=== PATIENT | female | born 1970 | race American Indian/Alaskan Native ===

== ENCOUNTER 2018-06-12 06:09 | Emergency (ER) | payer OTHER, SELFPAY ==
[2018-06-12 06:22] VITALS: BMI 36.6
[2018-06-12 06:23] VITALS: BP 159/119; PULSE 107; RESP 20; TEMP 37.1; O2SAT 99
--- NOTE | 2018-06-12 07:03 | ED_ITS ---
HPI - Extremity Problem General Chief complaint: Extremity Problem,Nontraumatic Stated complaint: numbness all over heart feels tight in chest area Time Seen by Provider: 06/12/18 07:03 Source: patient Mode of arrival: ambulatory Limitations: no limitations History of Present Illness HPI Narrative: 47-year-old female here for evaluation of multiple complaints. She states that last year she was here in the emergency department with was ultimately diagnosed as paresthesias. She states she was told to find a primary doctor and then to go see a neurologist for continued workup. She states that she has not done this. She does not have a primary care doctor. She states that the numbness that she has been getting all over her body has been worsening. She states she still can feel things he just it is a decreased sensation. She also feels cold. She is also here stating for the past couple days she has had left-sided chest pain that gets better when she moves her arm around. No problems breathing. Also describing back pain. Patient also admits to having very bad teeth which causes her to not eat much. She states she has no taste which also causes her not to eat much. She has not seen a dentist recently. Patient also admits to drinking daily. She states that she also abuses opioids. She has been drinking ensures but this is really the only nutrition. She states she has had thyroid issues in the past. She is not currently on any thyroid medications. Related Data Allergies Allergy/AdvReac Type Severity Reaction Status Date / Time ibuprofen [IBUPROFEN] Allergy Intermediate rash Unverified 06/12/18 07:30 Review of Systems Constitutional Reports chills, Reports fatigue, Denies fever(s), Reports malaise and Denies weakness Eyes Denies blurry vision and Denies diplopia ENT Ears, Nose, Mouth, and Throat: Denies vertigo, Reports dizziness, Reports disequilibrium, Denies sinus pressure and Denies sore throat Cardiovascular Reports chest pain, Denies syncope, Denies rapid heart rate, Denies edema, Reports lightheadedness, Denies palpitations, Denies dyspnea and Denies dyspnea on exertion Respiratory Denies cough, Denies dyspnea and Denies dyspnea on exertion Gastrointestinal Gastrointestinal: Denies abdominal pain, Denies change in bowel habits, Denies nausea and Denies vomiting Genitourinary Denies dysuria and Denies vaginal discharge Musculoskeletal Reports myalgias, Denies deformity, Denies arthralgias, Reports numbness and Reports tingling Integumentary/Breasts Denies lesions and Denies photosensitivity Neurologic Denies confusion, Denies vertigo, Reports dizziness, Denies syncope, Reports numbness, Reports tingling, Reports paresthesias, Reports disequilibrium and Denies weakness Psychiatric Denies anxiety, Denies confusion and Reports depression Endocrine Reports fatigue and Denies palpitations Hematologic/Lymphatic Comments: Not on anticoagulation Allergic/Immunologic Denies urticaria PFSH Medical History Graves disease (Acute) Surgical History No pertinent past surgical history (Acute) Social History Smoking Status: Current every day smoker Exam Initial Vital Signs Initial Vital Signs: Vital Signs Temperature 98.7 F 06/12/18 06:23 Pulse Rate 107 H 06/12/18 06:23 Respiratory Rate 20 06/12/18 06:23 Blood Pressure 159/119 H 06/12/18 06:23 Pulse Oximetry 99 06/12/18 06:23 Const General: cooperative, comfortable, well developed and No acute distress Orientation: alert, awake and oriented x3 HENMT Head: normal to inspection and normocephalic Teeth and gingiva: poor dentition Eyes Pupils: PERRL EOM: EOM intact bilaterally Chest Chest: normal inspection of the chest Resp Effort & Inspection: normal respiratory effort Auscultation: clear to auscultation bilaterally Cardio Rate: regular rate Rhythm: regular rhythm Heart Sounds: no murmurs Pulses: radial pulses present GI Inspection: non-distended Palpation: soft, No firm and No tender Back/Spine/Pelvis Cervical Spine: No cervical spinal tenderness Thoracic/Lumbar Spine: No thoracic spinal tenderness and No lumbar spinal tenderness Skin Lesions: no lesions Rashes: no rashes Neuro General: alert, awake and oriented x3 Cranial Nerves: CN's II-XI intact bilaterally Cognition: normal cognition Speech: speech normal Motor: muscle tone normal throughout Sensory Exam: other (Patient reports decreased sensation to light touch bilateral and all areas where i touched her upper lower extremities and on the head.) Extrem General: normal to inspection, capillary refill normal and No edema Psych Appearance: grossly normal and well kempt Course Orders Ordered: ED Orders 06/12/18 06:28 EKG-12 Lead Stat 06/12/18 06:50 Complete Blood Count AUTO DIFF Stat Comprehensive Metabolic Panel Stat Ethanol (ETOH) Stat Lipase Stat Magnesium Stat Phosphorous Stat Thyroid Stimulating Hormone Stat Troponin I Stat 06/12/18 08:50 Urine Culture Stat Urine Microscopic Stat Multivitamins (Tab-A-Tony) 1 tab PO DAILY SOL Last Admin: 06/12/18 07:37 Dose: 1 tab Discontinued Medications Sodium Chloride (Normal Saline 0.9%) 1,000 mls @ 1,000 mls/hr IV BOLUS ONE Stop: 06/12/18 08:20 Last Admin: 06/12/18 07:36 Dose: 1,000 mls/hr Potassium Chloride (Potassium Chloride) 40 meq PO NOW ONE Stop: 06/12/18 07:47 Last Admin: 06/12/18 09:05 Dose: 40 meq Vital Signs - 8 hr 06/12/18 06:23 06/12/18 09:01 Temperature 98.7 F Pulse Rate 107 H 99 H Respiratory Rate 20 Blood Pressure [Right Arm] 159/119 H 119/70 Pulse Oximetry 99 100 MDM - Extremity (Nontraumatic) Lab Data Result diagrams: 06/12/18 06:50 06/12/18 06:50 Lab Results 06/12/18 06/12/18 06/12/18 Range/Units 06:50 06:50 06:50 WBC 11.5 H (4.5-11.0) X10^3/uL RBC 3.08 L (4.0-5.2) X10^6/uL Hgb 12.6 (12.0-16.0) g/dL Hct 35.1 L (36-46) % MCV 114.2 H (80-100) fL MCH 40.9 H (26-34) PG MCHC 35.8 (30-36) % RDW 15.7 H (11.6-14.8) % Plt Count 365 (150-400) X10^3/uL Neut % (Auto) 73.4 (50-75) % Lymph % (Auto) 19.6 L (25-40) % [place] % (Auto) 5.1 (3-14) % Eos % (Auto) 1.3 L (2-4) % Baso % (Auto) 0.6 (0-2) % Neut # (Auto) 8400 H (9415-9981) /uL Lymph # (Auto) 2300 (6034-1417) /uL [place] # (Auto) 600 (0-900) /uL Eos # (Auto) 100 (0-450) /uL Baso # (Auto) 100 (0-100) /uL RBC Morphology See below Polychromasia 3+ H Anisocytosis 1+ H Sodium 133 L (137-145) mmol/L Potassium 2.8 L (3.4-5.1) mmol/L Chloride 90 L (98-107) mmol/L Carbon Dioxide 33 H (22-32) mmol/L BUN 8 (7-17) mg/dL Creatinine 0.30 L (0.52-1.04) mg/dL Estimated GFR > 60.0 (>60) mL/min BUN/Creatinine Ratio 26.7 H (6-22) Glucose 119 H (70-100) mg/dL Calcium 8.5 (8.4-10.2) mg/dL Phosphorus 2.9 (2.5-4.5) mg/dL Magnesium 1.8 (1.6-2.3) mg/dL Total Bilirubin 1.0 (0.2-1.3) mg/dL AST 82 H (14-36) IU/L ALT 29 (9-52) IU/L Alkaline Phosphatase 179 H (38-126) U/L Troponin I < 0.012 (0.01-0.034) ng/mL Total Protein 7.3 (6.3-8.2) g/dL Albumin 3.5 (3.5-5.0) g/dL Globulin 3.8 (1.7-4.1) g/dL Albumin/Globulin Ratio 0.9 L (1.0-2.8) Lipase 187 (23-300) U/L TSH 6.03 H (0.47-4.68) uIU/mL Urine RBC (0-5/HPF) Urine WBC (0-5/HPF) Urine Bacteria (None) Ur Culture Indicated? Ethyl Alcohol < 10 mg/dL 06/12/18 Range/Units 08:50 WBC (4.5-11.0) X10^3/uL RBC (4.0-5.2) X10^6/uL Hgb (12.0-16.0) g/dL Hct (36-46) % MCV (80-100) fL MCH (26-34) PG MCHC (30-36) % RDW (11.6-14.8) % Plt Count (150-400) X10^3/uL Neut % (Auto) (50-75) % Lymph % (Auto) (25-40) % [place] % (Auto) (3-14) % Eos % (Auto) (2-4) % Baso % (Auto) (0-2) % Neut # (Auto) (4994-1550) /uL Lymph # (Auto) (4301-7084) /uL [place] # (Auto) (0-900) /uL Eos # (Auto) (0-450) /uL Baso # (Auto) (0-100) /uL RBC Morphology Polychromasia Anisocytosis Sodium (137-145) mmol/L Potassium (3.4-5.1) mmol/L Chloride (98-107) mmol/L Carbon Dioxide (22-32) mmol/L BUN (7-17) mg/dL Creatinine (0.52-1.04) mg/dL Estimated GFR (>60) mL/min BUN/Creatinine Ratio (6-22) Glucose (70-100) mg/dL Calcium (8.4-10.2) mg/dL Phosphorus (2.5-4.5) mg/dL Magnesium (1.6-2.3) mg/dL Total Bilirubin (0.2-1.3) mg/dL AST (14-36) IU/L ALT (9-52) IU/L Alkaline Phosphatase (38-126) U/L Troponin I (0.01-0.034) ng/mL Total Protein (6.3-8.2) g/dL Albumin (3.5-5.0) g/dL Globulin (1.7-4.1) g/dL Albumin/Globulin Ratio (1.0-2.8) Lipase (23-300) U/L TSH (0.47-4.68) uIU/mL Urine RBC None seen (0-5/HPF) Urine WBC 5-10/hpf H (0-5/HPF) Urine Bacteria None seen (None) Ur Culture Indicated? Specimen cultured Ethyl Alcohol mg/dL Urine Dip Bedside Urine Glucose Negative Bedside Urine Bilirubin - Negative Bedside Urine Ketone - Negative Urine Specific [place] 1.010 Bedside Urine Occult Blood - Negative Bedside Urine pH 7.5 Bedside Urine Protein - Negative Bedside Urine Urobilinogen +/- 1mg Bedside Urine Nitrite - Negative Bedside Urine Leukocytes +++ 500 Esterase ECG Data Attestation EKG: I personally reviewed and interpreted this ECG as follows: Prior ECG tracings: not available for review Interpretation: Sinus tachycardia Ventricular rate of 109 Normal axis Normal QRS next normal QTC No ST T wave changes MDM Narrative Medical decision making narrative: Patient has nonspecific symptoms. Her potassium was slightly low and was replaced here in the emergency department. She was also given a multi-vitamin. She has a nonfocal neurologic exam. Low suspicion for TIA or CVA. Will hold on head CT. Patient does admit to drinking an excessive amount of alcohol. Considered alcohol withdrawal however she has no other signs of this. Considered encephalopathy and DTs however her symptoms are not consistent with that currently. She has no ocular motor abnormalities and no cerebellar dysfunction. No truncal ataxia. Was also some concern for MS. Her TSH was also elevated. I did discuss this with her. I do not feel like she needs started on thyroid hormone currently. Informed the patient that she does need to make contact with the primary care doctor. She was given the names of area groups and also phone numbers. She is also informed that she needed to see a dentist. She is given return precautions. She expressed understanding and agreement plan. Discharge Plan Departure Patient Disposition: Home Clinical Impression: Paresthesia, Hypokalemia, Pain, dental Instructions: Alcohol Use Disorder, Balanced Diet, DI for Alcohol Abuse Activity Restrictions/Additional Instructions: You did have some abnormalities on your labs test today specifically in your thyroid levels. I also feel like much of your symptoms are related to your poor dentition which I highly recommend that you see a dentist for. I also recommend that you try to eat a more balanced diet. You can contact the [facility] at [phone]. You can also contact [facility] at [phone]. You can also contact the [facility] at [phone]. You can also contact the [facility] at [phone]. I would also contact her insurance company. Your symptoms do require a follow-up with a primary care doctor. You can return to the emergency department at any time for new or worsening symptoms. I also highly recommend that you start taking a [id number] daily vitamin. Stand Alone Forms: Work Release Note
[2018-06-12 07:32] LABS: Add Manual Diff / Slide Review NO; Basophils Absolute Auto 100 /uL (0-100); Basophils Percent Auto 0.6 % (0-2); Eosinophils Absolute Auto 100 /uL (0-450); Eosinophils Percent Auto 1.3 % (2-4); Hematocrit 35.1 % (36-46); Hemoglobin 12.6 g/dL (12.0-16.0); Lymphocytes Absolute Auto 2300 /uL (1100-4500); Lymphocytes Percent Auto 19.6 % (25-40); Mean Corpuscular HGB Conc 35.8 % (30-36); Mean Corpuscular Hemoglobin 40.9 PG (26-34); Mean Corpuscular Volume 114.2 fL (80-100); Monocytes Absolute Auto 600 /uL (0-900); Monocytes Percent Auto 5.1 % (3-14); Neutrophils Absolute Auto 8400 /uL (1500-7000); Neutrophils Percent Auto 73.4 % (50-75); Platelet Count 365 X10^3/uL (150-400); Red Blood Cell Count 3.08 X10^6/uL (4.0-5.2); Red Cell Distribution Width 15.7 % (11.6-14.8); White Blood Cell Count 11.5 X10^3/uL (4.5-11.0)
[2018-06-12] MEDS: SODIUM CHLORIDE 0.9% 1,000 ML 1000 ML IV (07:36)
[2018-06-12] MEDS: MULTIVITAMIN 1 TABLET 1 TAB PO (07:37)
[2018-06-12 07:40] LABS: Alanine Aminotransferase 29 IU/L (9-52); Albumin 3.5 g/dL (3.5-5.0); Albumin Globulin Ratio 0.9 (1.0-2.8); Alkaline Phosphatase 179 U/L (38-126); Aspartate Aminotransferase 82 IU/L (14-36); BUN Creatinine Ratio 26.7 (6-22); Blood Urea Nitrogen 8 mg/dL (7-17); Calcium 8.5 mg/dL (8.4-10.2); Carbon Dioxide 33 mmol/L (22-32); Chloride 90 mmol/L (98-107); Estimated Glomerular Filt Rate > 60.0 mL/min (>60); Ethanol (ETOH) < 10 mg/dL; Globulin 3.8 g/dL (1.7-4.1); Glucose 119 mg/dL (70-100); HEMOLYSIS < 15 (0-50); Lipase 187 U/L (23-300); Magnesium 1.8 mg/dL (1.6-2.3); Phosphorous 2.9 mg/dL (2.5-4.5); Potassium 2.8 mmol/L (3.4-5.1); Sodium 133 mmol/L (137-145); Total Protein 7.3 g/dL (6.3-8.2)
[2018-06-12 07:51] LABS: Troponin I < 0.012 ng/mL (0.01-0.034)
[2018-06-12 07:57] LABS: Anisocytosis 1+; Polychromasia 3+
[2018-06-12 08:10] LABS: Thyroid Stimulating Hormone 6.03 uIU/mL (0.47-4.68)
[2018-06-12 08:54] LABS: Bacteria Urine None Seen; RBC Urine None Seen (0-5/HPF)
[2018-06-12 09:01] VITALS: BP 119/70; PULSE 99; O2SAT 100
[2018-06-12 09:01] LABS: Culture Indicated Urine Specimen Cultured; WBC Urine 5-10/HPF (0-5/HPF)
[2018-06-12] MEDS: POTASSIUM CHLORIDE 20 MEQ/15 ML UDC 40 MEQ PO (09:05)
[2018-06-12 09:52] VITALS: BP 126/75; PULSE 78; RESP 18; O2SAT 100
== END 2018-06-12 09:40 | disposition home or self-care (01) ==
PROVIDERS: Emergency Provider Emergency Medicine
DX: R20.2 Paresthesia of skin (principal); E87.6 Hypokalemia; K08.89 Other specified disorders of teeth and supporting structures
CPT/HCPCS: 36591; 80053; 80320; 81003; 81015; 83690; 83735; 84100; 84443; 84484; 85025; 87077; 87086; 93005; 93010; 96360; 96361; 99283; 99284